=== PATIENT | female | born 1985 | race Hispanic/Latino ===

== ENCOUNTER 2018-08-01 02:04 | Emergency (ER) | payer OTHER, MEDICARE | END 2018-08-01 02:45 | disposition home or self-care (01) | LOC: EDH 02:04 | DX: Z02.89 Encounter for other administrative examinations (principal); F41.9 Anxiety disorder, unspecified; J45.909 Unspecified asthma, uncomplicated; Z90.49 Acquired absence of other specified parts of digestive tract ==